=== PATIENT | male | born 2000 | race Caucasian/White ===

== ENCOUNTER 2023-12-30 12:22 | Emergency (ER) | payer BC ==
[~2023-12-30] VITALS: Ht 188 cm; Wt 73.0 kg
[2023-12-30 14:01] VITALS: BP 116/75; PULSE 61; RESP 16; TEMP 98.1; O2SAT 97
== END 2023-12-30 14:03 | disposition home or self-care (01) ==
LOC: ER 12:23
DX: R07.89 Other chest pain (principal); F41.9 Anxiety disorder, unspecified
CPT/HCPCS: 93005; 99283